=== PATIENT | female | born 1995 ===

== ENCOUNTER 2019-08-07 06:37 | Emergency (ER) | payer OTHER ==
--- NOTE | 2019-08-07 06:51 | ED ---
Back Pain - HPI Summary HPI Summary: Pt. is a 24 y.o female who presents to the ER for flank pain that started 4 days ago. Pt. notes hx of kidney stones and pain feels similar. Pain radiates into right lower abd. Pt. states she is unsure if she is having hematuria because she is just finishing her menstrual cycle. Pt. otherwise denies fever, dysuria, SOB, cough, V/D/C. NO past hx. Pain 05/09. Sxs are moderate in severity. No current modifying factors. Has not taken anything for pain. - History of Current Complaint Chief Complaint: EDFlankPain Stated Complaint: BACK PAIN PER PT Time Seen by Provider: 08/07/19 06:45 Hx Obtained From: Patient Pain Intensity: 7 - Allergies/Home Medications Allergies/Adverse Reactions: Allergies Allergy/AdvReac Type Severity Reaction Status Date / Time No Known Allergies Allergy Verified 08/07/19 06:40 Home Medications: Home Medications NK [No Home Medications Reported] 08/07/19 [History Confirmed 08/07/19] PMH/Surg Hx/FS Hx/Imm Hx Previously Healthy: Yes Endocrine/Hematology History: Denies: Hx Diabetes Cardiovascular History: Denies: Hx Hypertension History: Denies: Hx Renal Disease Infectious Disease History: No Infectious Disease History: Reports: Traveled Outside the [place] in Last 30 Days - [place] - Family History Known Family History: Positive: Non-Contributory - Social History Occupation: Student Lives: Dormitory/Roommates Review of Systems Constitutional: Negative Negative: Fever, Chills Cardiovascular: Negative Respiratory: Negative Negative: Shortness Of Breath, Cough Positive: Abdominal Pain. Negative: Vomiting, Diarrhea, Nausea Positive: flank pain Skin: Negative Negative: Rash All Other Systems Reviewed And Are Negative: Yes Physical Exam Triage Information Reviewed: Yes Vital Signs On Initial Exam: Initial Vitals Temp Pulse Resp BP Pulse Ox 97.2 F 88 15 109/77 99 08/07/19 06:39 08/07/19 06:39 08/07/19 06:39 08/07/19 06:39 08/07/19 06:39 Vital Signs Reviewed: Yes Appearance: Positive: Well-Appearing - Pt. sitting up in bed in NAD Skin: Positive: Warm, Dry Head/Face: Positive: Normal Head/Face Inspection Eyes: Positive: Normal, EOMI Neck: Positive: Supple Respiratory/Lung Sounds: Positive: Clear to Auscultation, Breath Sounds Present Cardiovascular: Positive: Normal, RRR Abdomen Description: Positive: Other: - Abd. is soft with mild tenderness to RLQ and RUQ. Right flank pain. Musculoskeletal: Positive: Normal, Strength/ROM Intact Neurological: Positive: Normal, CN Intact II-III Psychiatric: Positive: Affect/Mood Appropriate Procedures - Sedation Patient Received Moderate/Deep Sedation with Procedure: No Diagnostics - Vital Signs Vital Signs Temp Pulse Resp BP Pulse Ox 08/07/19 06:39 97.2 F 88 15 109/77 99 - Laboratory Result Diagrams: 08/07/19 07:27 08/07/19 07:27 Lab Statement: Any lab studies that have been ordered have been reviewed, and results considered in the medical decision making process. Back Pain Course/Dx - Course Course Of Treatment: Pt. presenting with right flank pain and hx of kidney stones. She had CT Abd/pelvis 6 mos ago that showed a small stone on the left. Afebrile. Pt. given iv fluids and toradol. Kidney us ordered to evlaute for hydro and obstructive stone. Labs are unremarkable. U/A shows trace blood and WBCs. Kidney u/s negative for acute findings per radiology. On re-exam pain has greatly improved. Suspect pt. could be passing a very small stone. Will dc home to [facility] if pain persist. To increase fluids. Motrin for pain as directed. To return to ER for increased pain, fever, vomiting or if concerned. Pt. understands and agrees with plan. - Diagnoses Differential Diagnosis/HQI/PQRI: Positive: Renal Colic, Strain, Sprain Provider Diagnoses: Flank pain Discharge ED - Sign-Out/Discharge Documenting (check all that apply): Patient Departure - Discharge Plan Condition: Improved Disposition: HOME Patient Education Materials: Kidney Stones (ED), Flank Pain (ED) Referrals: [facility] [Outside] Additional Instructions: Schedule a follow up appointment with [facility] in 2-3 days if symptoms persist Increase fluids Ibuprofen 600mg-800mg every 8 hours as needed for pain Return to ER for increased pain, vomiting, fever, or if concerned - Billing Disposition and Condition Condition: IMPROVED Disposition: Home
[2019-08-07] MEDS ORDERED: NS 0.9% 1000 ML** 1,000 ML IV ONE (06:59)
[2019-08-07] MEDS ORDERED: Ketorolac INJ* 30 MG/ML 1 ML VIAL IV PUSH ONE (07:02)
[2019-08-07 07:48] LABS: Urine Appearance Clear; Urine Bacteria Absent (Absent); Urine Bilirubin Negative (Negative); Urine Blood 1+ (Negative); Urine Color Yellow; Urine Glucose Negative (Negative); Urine Ketones Negative (Negative); Urine Nitrite Negative (Negative); Urine Protein Negative (Negative); Urine Red Blood Cell Absent (Absent); Urine Specific Gravity 1.011 (1.010-1.030); Urine Squamous Epithelial Cell Present (Absent); Urine Urobilinogen Negative (Negative); Urine White Blood Cell Trace(0-5/hpf) (Absent)
[2019-08-07 07:52] LABS: ABS Eosinophils 0.2 10^3/ul (0-0.6); ABS Monocytes 0.6 10^3/ul (0-0.8); ABS Neutrophils 3.6 10^3/ul (1.5-7.7); Eosinophil % 2.6 %; Hematocrit 37 % (35-47); Lymphocyte % 31.2 %; Mean Corpuscular HGB Conc 35 g/dL (31-36); Mean Corpuscular Hemoglobin 31 pg (27-31); Mean Corpuscular Volume 88 fL (80-97); Mean Platelet Volume 6.7 fL (7.4-10.4); Platelet Count 289 10^3/uL (150-450); Red Blood Count 4.24 10^6 /uL (3.70-4.87); Red Cell Distribution Width 14 % (10-15); White Blood Count 6.3 10^3/uL (3.5-10.8)
[2019-08-07 08:09] LABS: HCG Pregnancy < 0.60 mIU/mL
[2019-08-07 08:10] LABS: ALT 13 U/L (7-52); AST 18 U/L (13-39); Albumin 4.2 g/dL (3.2-5.2); Albumin/Globulin Ratio 1.6 (1-3); Alkaline Phosphatase 65 U/L (34-104); Anion Gap 7 mmol/L (2-11); BUN/Creatinine Ratio 17.1 (8-20); Blood Urea Nitrogen 12 mg/dL (6-24); CO2 Carbon Dioxide 26 mmol/L (22-32); Calcium 9.2 mg/dL (8.6-10.3); Chloride 106 mmol/L (101-111); EGFR African American 123.4 (>60); Globulin 2.6 g/dL (2-4); Glucose 106 mg/dL (70-100); Potassium 3.8 mmol/L (3.5-5.0); Sodium 139 mmol/L (135-145); Total Protein 6.8 g/dL (6.4-8.9)
[2019-08-07 08:52] LABS: HIV 4th Generation Nonreactive (Nonreactive)
[2019-08-07 09:20] VITALS: BP 87/71
== END 2019-08-07 09:21 | disposition home or self-care (01) ==
LOC: ED 06:37
DX: R10.31 Right lower quadrant pain (principal)
CPT/HCPCS: 36415; 76775; 80053; 81003; 81015; 84702; 85025; 87086; 87389; 96374; 99283; J1885